=== PATIENT | male | born 1990 | race African-American/Black ===

== ENCOUNTER 2017-07-25 04:38 | Emergency (ER) | payer OTHER ==
[~2017-07-25] VITALS: Ht 175.3 cm; Wt 73.1 kg
[~2017-07-25 04:38] MED LIST: BACTRIM,SEPT1 TABLET PO; KEFLEX500 MG PO; MOBIC7.5 MG PO; MOTRIN800 MG PO; NAPROXEN500 MG PO; NORCO 5/3251 TABLET PO; PEN-VEE K,VEET500 MG PO; ULTRAM50 MG PO
[2017-07-25 04:43] VITALS: BP 131/73
[2017-07-25] MEDS ORDERED: BACTROBAN NASAL1 G1 BOTH NARES (05:02)
[2017-07-25] MEDS ORDERED: BACTRIM,SEPT1 TABLET PO (05:02)
== END 2017-07-25 05:23 | disposition home or self-care (01) ==
LOC: EME 04:38
DX: L02.214 Cutaneous abscess of groin (principal); F17.200 Nicotine dependence, unspecified, uncomplicated
CPT/HCPCS: 99281; 99283

== ENCOUNTER 2017-08-05 14:36 | Emergency (ER) | payer OTHER ==
[~2017-08-05] VITALS: Ht 172.7 cm; Wt 73.1 kg
[~2017-08-05 14:36] MED LIST changes: +BACTROBAN NASAL1 G1 BOTH NARES
[2017-08-05 17:26] VITALS: BP 127/79
== END 2017-08-05 17:28 | disposition home or self-care (01) ==
LOC: EME 14:36
DX: T21.06XA Burn of unspecified degree of male genital region, initial encounter (principal); L08.9 Local infection of the skin and subcutaneous tissue, unspecified; X58.XXXA Exposure to other specified factors, initial encounter; Z72.0 Tobacco use
CPT/HCPCS: 99281; 99283

== ENCOUNTER 2018-03-05 18:45 | Emergency (ER) | payer OTHER ==
[~2018-03-05] VITALS: Ht 175.3 cm; Wt 76.2 kg
[~2018-03-05 18:45] MED LIST changes: +BENADRYL50 MG PO; +PREDNISONE20 MG PO; +ZANTAC150 MG PO
[2018-03-05] MEDS ORDERED: FLEXERIL10 MG PO (19:49)
[2018-03-05] MEDS ORDERED: NAPROSYN500 MG PO (19:49)
[2018-03-05 20:09] VITALS: BP 106/84
== END 2018-03-05 20:10 | disposition home or self-care (01) ==
LOC: EME 18:45
DX: S46.912A Strain of unspecified muscle, fascia and tendon at shoulder and upper arm level, left arm, initial encounter (principal); X58.XXXA Exposure to other specified factors, initial encounter; Y93.72 Activity, wrestling; F17.200 Nicotine dependence, unspecified, uncomplicated
CPT/HCPCS: 73030; 99281; 99283